=== PATIENT | male | born 1960 | race African-American/Black ===

== ENCOUNTER 2017-03-10 04:55 | Emergency (ER) | payer OTHER ==
[~2017-03-10] VITALS: Ht 170.2 cm; Wt 71.4 kg
[~2017-03-10 04:55] MED LIST: BACTRIM DS1 TAB PO; LORTAB 7.57.5 MG OR; NAPROXEN; UNKNOWN B/P MED
[2017-03-10] MEDS ORDERED: CYCLOBENZAPR10 MG PO (05:16)
[2017-03-10] MEDS ORDERED: METOPROL TAR25 MG PO (05:17)
[2017-03-10] MEDS ORDERED: LOSARTAN POTASS50 MG PO (05:17)
[2017-03-10] MEDS ORDERED: TRAMADOL HCL50 MG PO (05:18)
[2017-03-10] MEDS ORDERED: CELEBREX100 M1 PO (05:18)
[2017-03-10] MEDS ORDERED: MAXZIDE-2537.5 MG/TA PO (05:19)
[2017-03-10] MEDS ORDERED: AMLODIPINE5 MG PO (05:19)
[2017-03-10 05:54] LABS: ALBUMIN 4.6 g/dL (3.2-5.0); BILIRUBIN, TOTAL 0.8 mg/dL (0.0-1.4); CREATININE 1.5 mg/dL (0.7-1.3); TOTAL PROTEIN 7.8 g/dL (6.3-8.2)
[2017-03-10 05:57] LABS: ACT PARTIAL THROMBO TIME 26.6 SECONDS (20.0-32.5); PROTHROMBIN TIME 10.8 SECONDS (9.0-12.5)
[2017-03-10 06:01] LABS: HEMATOCRIT 47.7 % (39.0-50.0); HEMOGLOBIN 15.6 g/dl (14.0-18.0); IMMATURE GRANULOCYTES 0.2 % (0.0-1.0); MEAN CORPUSCULAR HGB 27.8 pG CALC (26.0-32.0); MEAN CORPUSCULAR HGB CONC 32.7 g/L CALC (32.0-36.0); NEUT# 1.49 thou/uL (1.82-7.42); RED BLOOD COUNT 5.61 mill/uL (4.70-6.10); RED CELL DISTRI WIDTH 13.8 % (11.5-15.5)
[2017-03-10 06:35] LABS: URINE BILIRUBIN - DIPSTICK NEGATIVE (NEGATIVE); URINE BLOOD DIPSTICK TRACE-LYSED (NEGATIVE); URINE CLARITY CLEAR; URINE COLOR YELLOW; URINE GLUCOSE - DIPSTICK NEGATIVE (NEGATIVE); URINE KETONE NEGATIVE (NEGATIVE); URINE LEUK ESTERASE NEGATIVE (NEGATIVE); URINE NITRITE - DIPSTICK NEGATIVE (Negative); URINE PH 5.5 (4.5-8.0); URINE PROTEIN - DIPSTICK NEGATIVE (NEG-TRACE); URINE SPECIFIC GRAVITY 1.015; URINE UROBILINOGEN - DIPSTICK 0.2 E.U./dL (0.2)
[2017-03-10 06:40] LABS: BARBITURATES NEGATIVE (NEGATIVE); COCAINE POSITIVE (NEGATIVE); METHADONE NEGATIVE (NEGATIVE); OXCYCODONE NEGATIVE (NEGATIVE); TETRAHYDROCANNABIONOL POSITIVE (NEGATIVE); TRICYLIC ANTIDEPRESSANTS NEGATIVE (NEGATIVE)
[2017-03-10 07:46] VITALS: BP 129/81
== END 2017-03-10 07:10 | disposition short-term general hospital (02) | DRG 313 ==
LOC: ED 04:55
PROVIDERS: Emergency Medicine
DX: R07.9 Chest pain, unspecified (principal); I10 Essential (primary) hypertension; R74.8 Abnormal levels of other serum enzymes; M19.90 Unspecified osteoarthritis, unspecified site; F17.210 Nicotine dependence, cigarettes, uncomplicated

== ENCOUNTER 2019-12-29 07:28 | Day surgery (SDC) | payer MEDICARE ==
[~2019-12-29] VITALS: Ht 170.2 cm; Wt 70.3 kg
[~2019-12-29 07:28] MED LIST changes: +AMLODIPINE5 MG PO; +AMMONIUM LACTATE121 EX; +CARVEDILOL12.5 MG PO; +CELEBREX100 M1 PO; +CLOTRIMAZOLE13 EX; +CYCLOBENZAPR10 MG PO; +DICLOFENAC SODIUM1 % TOP; +LOSARTAN POTASS50 MG PO; +MAXZIDE-2537.5 MG/TA PO; +METOPROL TAR25 MG PO; +TRAMADOL HCL50 MG PO
[2019-12-29 07:53] VITALS: BP 176/97
== END 2019-12-29 08:10 | disposition home or self-care (01) ==
LOC: ENDO 07:28
PROVIDERS: ATTEND Surgery
DX: Z12.11 Encounter for screening for malignant neoplasm of colon (principal); I10 Essential (primary) hypertension; R82.5 Elevated urine levels of drugs, medicaments and biological substances; Z53.09 Procedure and treatment not carried out because of other contraindication; Z11.59 Encounter for screening for other viral diseases

== ENCOUNTER 2020-06-17 02:06 | Emergency (ER) | payer MEDICARE ==
[~2020-06-17] VITALS: Ht 170.2 cm; Wt 70.5 kg
[2020-06-17 02:51] LABS: MEAN CELL VOLUME 87.2 fL CALC (80.0-100.0); MEAN CORPUSCULAR HGB 28.4 pG CALC (26.0-32.0); MEAN CORPUSCULAR HGB CONC 32.5 g/dL CAL (32.0-36.0); NEUT# 3.14 thou/uL (1.82-7.42); RED BLOOD COUNT 4.62 mill/uL (4.70-6.10); RED CELL DISTRI WIDTH 13.9 % (11.5-15.5)
[2020-06-17 02:58] LABS: HEMATOCRIT 40.3 % (39.0-50.0); HEMOGLOBIN 13.1 g/dl (14.0-18.0)
[2020-06-17 03:02] LABS: ALBUMIN 4.1 g/dL (3.2-5.0); ALKALINE PHOSPHATASE 58 u/l (38-126); ANION GAP 13 (6-22 (CALC)); BILIRUBIN, TOTAL 0.6 mg/dL (0.0-1.4); BUN 17 mg/dL (9-20); BUN/CREATININE RATIO 13 (12-20 (CALC)); CARBON DIOXIDE 23 mmol/l (22-30); CHLORIDE 109 mmol/l (95-108); CREATININE 1.3 mg/dL (0.7-1.3); ETHYL ALCOHOL 64 mg/dl (0-30); GFR 57 ML/MIN (>=60 (CALC)); GFR FOR AFR.AMER. > 60 ML/MIN (>=60 (CALC)); POTASSIUM 3.5 mmol/l (3.5-5.1); SGOT/AST 24 u/l (17-59); SODIUM 141 mmol/l (137-146); TOTAL PROTEIN 7.1 g/dL (6.3-8.2)
[2020-06-17] MEDS ORDERED: NORVASC10 M1 PO (03:50)
[2020-06-17 04:24] LABS: URINE BILIRUBIN - DIPSTICK NEGATIVE (NEGATIVE); URINE BLOOD DIPSTICK NEGATIVE (NEGATIVE); URINE COLOR YELLOW; URINE GLUCOSE - DIPSTICK NEGATIVE (NEGATIVE); URINE KETONE NEGATIVE (NEGATIVE); URINE LEUK ESTERASE NEGATIVE (NEGATIVE); URINE NITRITE - DIPSTICK NEGATIVE (Negative); URINE PROTEIN - DIPSTICK NEGATIVE (NEG-TRACE); URINE UROBILINOGEN - DIPSTICK 0.2 E.U./dL (0.2)
[2020-06-17 05:07] VITALS: BP 158/86
== END 2020-06-17 05:07 | disposition home or self-care (01) ==
LOC: ED 02:06
PROVIDERS: Family Medicine
DX: R11.0 Nausea (principal); R82.5 Elevated urine levels of drugs, medicaments and biological substances; I10 Essential (primary) hypertension

== ENCOUNTER 2021-09-28 07:44 | Day surgery (SDC) | payer MEDICARE, MEDICAID ==
[~2021-09-28 07:44] MED LIST changes: +ASPIRIN 81 LOW81 MG PO; +BACLOFEN20 MG PO; +CARVEDILOL25 MG PO; +LOSARTAN POTAS100 MG PO; +MULTI VIT PO; +NORVASC10 M1 PO; +TRAMADOL HYDROC50 M1 PO; +[UNRECOGNIZED DRUG - CODE] PO; +[UNRECOGNIZED DRUG - OTHER] PO
[2021-09-28 10:29] VITALS: BP 107/74
== END 2021-09-28 10:20 | disposition home or self-care (01) ==
LOC: ENDO 07:44
PROVIDERS: ATTEND Surgery
PROC: 0DBM8ZX Excision of Descending Colon, Via Natural or Artificial Opening Endoscopic, Diagnostic (ICD-10-PCS; principal; 2021-09-28)
PROC: 0DBL8ZX Excision of Transverse Colon, Via Natural or Artificial Opening Endoscopic, Diagnostic (ICD-10-PCS; 2021-09-28)
PROC: 0DBN8ZX Excision of Sigmoid Colon, Via Natural or Artificial Opening Endoscopic, Diagnostic (ICD-10-PCS; 2021-09-28)
DX: Z12.11 Encounter for screening for malignant neoplasm of colon (principal); D12.4 Benign neoplasm of descending colon; D12.3 Benign neoplasm of transverse colon; D12.5 Benign neoplasm of sigmoid colon; I10 Essential (primary) hypertension